=== PATIENT | female | born 1935 | race Caucasian/White ===

== ENCOUNTER 2017-08-16 11:44 | Day surgery (SDC) | payer MEDICARE, BC ==
[~2017-08-16] VITALS: Ht 160 cm; Wt 61.7 kg
[~2017-08-16 11:44] MED LIST: ASCO250CH; ASCO500; ASPI81CH; FAMO20; Hair, Skin & N1 EACH; METF500; PRAV20; Toprol Xl50 MG; [UNRECOGNIZED DRUG - REMARK]
== END 2017-08-16 14:12 | disposition home or self-care (01) ==
LOC: ORSCSDS 11:44
PROVIDERS: Internal Medicine Gastroenterology
PROC: 0DBM8ZX Excision of Descending Colon, Via Natural or Artificial Opening Endoscopic, Diagnostic (ICD-10-PCS; principal; 2017-08-16 13:00)
PROC: 3E0H8GC Introduction of Other Therapeutic Substance into Lower GI, Via Natural or Artificial Opening Endoscopic (ICD-10-PCS; principal; 2017-08-16 13:00)
PROC: 0DBK8ZX Excision of Ascending Colon, Via Natural or Artificial Opening Endoscopic, Diagnostic (ICD-10-PCS; principal; 2017-08-16 13:00)
PROC: 0DBL8ZX Excision of Transverse Colon, Via Natural or Artificial Opening Endoscopic, Diagnostic (ICD-10-PCS; principal; 2017-08-16 13:00)
DX: Z12.11 Encounter for screening for malignant neoplasm of colon (principal); Z86.010 Personal history of colon polyps; Z80.0 Family history of malignant neoplasm of digestive organs; D12.2 Benign neoplasm of ascending colon; D12.3 Benign neoplasm of transverse colon; D12.4 Benign neoplasm of descending colon; K64.8 Other hemorrhoids; E78.5 Hyperlipidemia, unspecified; I10 Essential (primary) hypertension; Z87.891 Personal history of nicotine dependence; Z79.899 Other long term (current) drug therapy; Z79.82 Long term (current) use of aspirin
CPT/HCPCS: 88305; J1980; J2405; J7120

== ENCOUNTER 2017-10-25 11:49 | Day surgery (SDC) | payer MEDICARE, BC ==
[~2017-10-25] VITALS: Ht 160 cm; Wt 60.7 kg
== END 2017-10-25 14:10 | disposition home or self-care (01) ==
LOC: ORSCSDS 11:49
PROVIDERS: Internal Medicine Gastroenterology
PROC: 0DBK8ZX Excision of Ascending Colon, Via Natural or Artificial Opening Endoscopic, Diagnostic (ICD-10-PCS; principal; 2017-10-25 13:00)
PROC: 0DBM8ZX Excision of Descending Colon, Via Natural or Artificial Opening Endoscopic, Diagnostic (ICD-10-PCS; principal; 2017-10-25 13:00)
PROC: 0DBH8ZX Excision of Cecum, Via Natural or Artificial Opening Endoscopic, Diagnostic (ICD-10-PCS; principal; 2017-10-25 13:00)
DX: Z86.010 Personal history of colon polyps (principal); D12.0 Benign neoplasm of cecum; D12.2 Benign neoplasm of ascending colon; D12.4 Benign neoplasm of descending colon; K64.8 Other hemorrhoids; Z80.0 Family history of malignant neoplasm of digestive organs; Z87.891 Personal history of nicotine dependence; K21.9 Gastro-esophageal reflux disease without esophagitis; E78.5 Hyperlipidemia, unspecified; I10 Essential (primary) hypertension; Z79.899 Other long term (current) drug therapy; Z79.82 Long term (current) use of aspirin
CPT/HCPCS: 82947; 88305; J1980; J2405; J7120

== ENCOUNTER 2017-11-13 13:42 | Inpatient (IN) | payer MEDICARE, BC ==
[~2017-11-13] VITALS: Ht 160 cm; Wt 61.7 kg
[2017-11-13] MEDS ORDERED: METO50ER PO (14:04)
[2017-11-13] MEDS ORDERED: METF500C PO (14:04)
[2017-11-13] MEDS ORDERED: FAMO20 PO (14:05)
[2017-11-13] MEDS ORDERED: PRAV20 PO (14:06)
[2017-11-13] MEDS ORDERED: Hair, Skin & N1 EACH PO (14:08)
[2017-11-13] MEDS ORDERED: VITAMIN C500 MG PO (14:11)
[2017-11-13] MEDS ORDERED: CHOL10002 PO (14:11)
[2017-11-18 04:10] LABS: BASOPHILS ABSOLUTE AUTO 0.02 K/mm3 (0.00-0.23); BASOPHILS PERCENT AUTO 0 % (0-2); EOSINOPHILS PERCENT AUTO 0 % (0-6); Hematocrit 31.5 % (33.0-51.0); Hemoglobin 10.2 g/dL (11.5-16.0); IMMATURE GRAN ABSOLUTE AUTO 0.03 K/mm3 (0.00-0.10); IMMATURE GRAN PERCENT AUTO 0 % (0-1); LYMPHOCYTES ABSOLUTE AUTO 1.27 K/mm3 (0.84-5.20); LYMPHOCYTES PERCENT AUTO 12 % (21-46); MONOCYTES ABSOLUTE AUTO 0.91 K/mm3 (0.16-1.47); MONOCYTES PERCENT AUTO 8 % (4-13); Mean Corpuscular HGB 28.1 pg (26.0-34.0); Mean Corpuscular HGB Conc 32.4 g/dL (31.5-36.5); Mean Corpuscular Volume 87 fL (80-100); Mean Platelet Volume 9.4 fL (9.1-12.4); NEUTROPHILS ABSOLUTE AUTO 8.58 K/mm3 (1.96-9.15); NEUTROPHILS PERCENT AUTO 79 % (41-73); Platelet Count 219 K/mm3 (150-400); RDW Coefficient Variation 13.8 % (11.7-14.2); RDW Standard Deviation 44.3 fL (35.1-46.3); Red Blood Cell Count 3.63 M/mm3 (3.80-5.20); White Blood Cell Count 10.81 K/mm3 (4.00-11.30)
[2017-11-18 04:28] LABS: Anion Gap 7 mmol/L (6-16); Blood Urea Nitrogen 11 mg/dL (8-24); CO2, Blood 25 mmol/L (21-32); Calcium, Blood 7.5 mg/dL (8.5-10.1); Chloride, Blood 107 mmol/L (98-108); Creatinine, Blood 0.58 mg/dL (0.40-1.00); Glomerular Filtration Rate >60 (60-); Glucose, Blood 100 mg/dL (70-99); Potassium, Blood 3.8 mmol/L (3.5-5.5); Sodium, Blood 139 mmol/L (136-145)
[2017-11-19 18:22] LABS: Alanine Aminotransfer (ALT/SGP 35 U/L (12-78); Albumin, Blood 2.9 g/dL (3.4-5.0); Albumin/Globulin Ratio 0.7 (0.8-1.8); Alk Phos 66 U/L (50-136); Anion Gap 9 mmol/L (6-16); Aspartate Aminotrans (AST/SGOT 18 U/L (12-37); Bilirubin, Total 0.4 mg/dL (0.1-1.0); Blood Urea Nitrogen 13 mg/dL (8-24); Bun/Creatinine Ratio 21.3 (12.0-20.0); CO2, Blood 28 mmol/L (21-32); Chloride, Blood 102 mmol/L (98-108); Creatinine, Blood 0.61 mg/dL (0.40-1.00); Globulin, Blood 3.9 g/dL (2.2-4.0); Glomerular Filtration Rate >60 (60-); Glucose, Blood 98 mg/dL (70-99); Potassium, Blood 3.9 mmol/L (3.5-5.5); Sodium, Blood 139 mmol/L (136-145); Total Protein, Blood 6.8 g/dL (6.4-8.2)
[2017-11-20 21:48] LABS: Body Fluid Crystals POS (NEGATIVE)
[2017-11-20 21:51] LABS: BASOPHILS ABSOLUTE AUTO 0.02 K/mm3 (0.00-0.23); BASOPHILS PERCENT AUTO 0 % (0-2); EOSINOPHILS ABSOLUTE AUTO 0.15 K/mm3 (0.00-0.68); EOSINOPHILS PERCENT AUTO 2 % (0-6); Hematocrit 33.3 % (33.0-51.0); Hemoglobin 11.2 g/dL (11.5-16.0); IMMATURE GRAN ABSOLUTE AUTO 0.04 K/mm3 (0.00-0.10); IMMATURE GRAN PERCENT AUTO 0 % (0-1); LYMPHOCYTES ABSOLUTE AUTO 1.46 K/mm3 (0.84-5.20); LYMPHOCYTES PERCENT AUTO 15 % (21-46); MONOCYTES ABSOLUTE AUTO 0.77 K/mm3 (0.16-1.47); MONOCYTES PERCENT AUTO 8 % (4-13); Mean Corpuscular HGB 28.4 pg (26.0-34.0); Mean Corpuscular HGB Conc 33.6 g/dL (31.5-36.5); Mean Corpuscular Volume 85 fL (80-100); Mean Platelet Volume 10.2 fL (9.1-12.4); NEUTROPHILS ABSOLUTE AUTO 7.04 K/mm3 (1.96-9.15); NEUTROPHILS PERCENT AUTO 74 % (41-73); Platelet Count 209 K/mm3 (150-400); RDW Coefficient Variation 13.4 % (11.7-14.2); RDW Standard Deviation 41.9 fL (35.1-46.3); Red Blood Cell Count 3.94 M/mm3 (3.80-5.20); White Blood Cell Count 9.48 K/mm3 (4.00-11.30)
[2017-11-20 22:14] LABS: Appearance, Synovial Fluid Turbid (Clear); Color, Synovial Fluid Yellow (None-P Yel); WBC Count, Synovial Fluid 28977 /mm3 (0-180)
[2017-11-20 22:22] LABS: RBC Count, Synovial Fluid 990 /mm3 (0-0)
[2017-11-20 22:30] LABS: Monocytes/Macrophages, Synovia 7 % (0-65); Neutrophils, Synovial Fluid 93 % (0-24)
[2017-11-22 04:24] LABS: BASOPHILS ABSOLUTE AUTO 0.01 K/mm3 (0.00-0.23); BASOPHILS PERCENT AUTO 0 % (0-2); EOSINOPHILS PERCENT AUTO 0 % (0-6); Hematocrit 31.2 % (33.0-51.0); Hemoglobin 10.2 g/dL (11.5-16.0); IMMATURE GRAN ABSOLUTE AUTO 0.03 K/mm3 (0.00-0.10); IMMATURE GRAN PERCENT AUTO 0 % (0-1); LYMPHOCYTES ABSOLUTE AUTO 0.84 K/mm3 (0.84-5.20); LYMPHOCYTES PERCENT AUTO 10 % (21-46); MONOCYTES ABSOLUTE AUTO 0.85 K/mm3 (0.16-1.47); MONOCYTES PERCENT AUTO 10 % (4-13); Mean Corpuscular HGB 27.7 pg (26.0-34.0); Mean Corpuscular HGB Conc 32.7 g/dL (31.5-36.5); Mean Corpuscular Volume 85 fL (80-100); Mean Platelet Volume 9.7 fL (9.1-12.4); NEUTROPHILS ABSOLUTE AUTO 7.07 K/mm3 (1.96-9.15); NEUTROPHILS PERCENT AUTO 80 % (41-73); Platelet Count 275 K/mm3 (150-400); RDW Coefficient Variation 13.4 % (11.7-14.2); RDW Standard Deviation 42.1 fL (35.1-46.3); Red Blood Cell Count 3.68 M/mm3 (3.80-5.20)
[2017-11-22 04:56] LABS: Anion Gap 11 mmol/L (6-16); Blood Urea Nitrogen 8 mg/dL (8-24); Bun/Creatinine Ratio 16.3 (12.0-20.0); CO2, Blood 25 mmol/L (21-32); Calcium, Blood 8.3 mg/dL (8.5-10.1); Chloride, Blood 103 mmol/L (98-108); Creatinine, Blood 0.49 mg/dL (0.40-1.00); Glomerular Filtration Rate >60 (60-); Glucose, Blood 120 mg/dL (70-99); Magnesium, Blood 1.6 mg/dL (1.6-2.4); Potassium, Blood 3.4 mmol/L (3.5-5.5); Sodium, Blood 139 mmol/L (136-145)
[2017-11-23] MEDS ORDERED: Bactrim Ds Tab1 EACH PO ×2 (08:13→12:23)
[2017-11-23] MEDS ORDERED: HYDR1TAB94 PO ×2 (08:14→12:22)
[2017-11-23] MEDS ORDERED: ASPI325EC PO (08:15)
[2017-11-23 09:51] LABS: Vancomycin, Trough 3.9 ug/mL (5.0-10.0)
[2017-11-23] MEDS ORDERED: COLCHICINE0.6 MG PO ×2 (11:24→12:22)
[2017-11-23] MEDS ORDERED: ACET325 PO (12:21)
== END 2017-11-23 14:45 | disposition home or self-care (01) | DRG 330 ==
LOC: SURS 11-17 07:11 → PRE IP 11-17 09:00 → SURS 11-17 13:05
PROVIDERS: Hospitalist; Orthopaedic Surgery; Pharmacist; Surgery
PROC: 0DTF4ZZ Resection of Right Large Intestine, Percutaneous Endoscopic Approach (ICD-10-PCS; 2017-11-17)
PROC: 0S9D3ZX Drainage of Left Knee Joint, Percutaneous Approach, Diagnostic (ICD-10-PCS; 2017-11-20)
PROC: 0SBD4ZZ Excision of Left Knee Joint, Percutaneous Endoscopic Approach (ICD-10-PCS; principal; 2017-11-21 20:00)
PROC: 06HY33Z Insertion of Infusion Device into Lower Vein, Percutaneous Approach (ICD-10-PCS; 2017-11-22)
DX: D12.0 Benign neoplasm of cecum (principal); M00.862 Arthritis due to other bacteria, left knee; M10.9 Gout, unspecified; B96.89 Other specified bacterial agents as the cause of diseases classified elsewhere; I10 Essential (primary) hypertension; K21.9 Gastro-esophageal reflux disease without esophagitis; G89.18 Other acute postprocedural pain; E87.6 Hypokalemia; E78.5 Hyperlipidemia, unspecified; R00.2 Palpitations; M11.262 Other chondrocalcinosis, left knee; S83.242A Other tear of medial meniscus, current injury, left knee, initial encounter; R73.03 Prediabetes; Z79.899 Other long term (current) drug therapy; Z79.84 Long term (current) use of oral hypoglycemic drugs; Z80.0 Family history of malignant neoplasm of digestive organs; Z87.891 Personal history of nicotine dependence; Z86.010 Personal history of colon polyps
CPT/HCPCS: 36415; 36569; 73502; 73562-LT; 80048; 80053; 80202; 83735; 84145; 84550; 85025; 85651; 86140; 87040; 87070; 87205; 88307; 89051; 89060; 94762; 97116; 97161; 97530; C1751; G8978; G8979; G8980; J0295; J0690; J1100; J1650; J1885; J2370; J2405; J2710; J2765; J3010; J3301; J3370; J7030; J7050; J7120

== ENCOUNTER 2017-11-24 00:30 | Day surgery (SDC) | payer MEDICARE, BC ==
[~2017-11-24 00:30] MED LIST changes: +ACET325 PO; +ASPI325EC PO; +Bactrim Ds Tab1 EACH PO; +CHOL10002 PO; +COLCHICINE0.6 MG PO; +FAMO20 PO; +HYDR1TAB94 PO; +Hair, Skin & N1 EACH PO; +METF500C PO; +METO50ER PO; +PRAV20 PO; +VITAMIN C500 MG PO
[2017-11-24 08:51] LABS: Creatinine, Blood 0.58 mg/dL (0.40-1.00); Vancomycin, Trough 5.5 ug/mL (5.0-10.0)
== END 2017-11-24 17:50 | disposition home or self-care (01) ==
LOC: ATC 00:30
PROVIDERS: Orthopaedic Surgery
DX: M00.9 Pyogenic arthritis, unspecified (principal); M10.9 Gout, unspecified; Z98.890 Other specified postprocedural states; Z90.49 Acquired absence of other specified parts of digestive tract
CPT/HCPCS: 80202; 82565; 96365; J3370

== ENCOUNTER 2017-11-25 07:46 | Day surgery (SDC) | payer MEDICARE, BC | END 2017-11-25 17:33 | disposition home or self-care (01) | LOC: ATC 07:46 | DX: M00.9 Pyogenic arthritis, unspecified (principal); M10.9 Gout, unspecified; Z98.890 Other specified postprocedural states; Z90.49 Acquired absence of other specified parts of digestive tract | CPT/HCPCS: 96365; J3370 ==

== ENCOUNTER 2017-11-26 08:20 | Day surgery (SDC) | payer MEDICARE, BC ==
[2017-11-26 09:01] LABS: Creatinine, Blood 0.64 mg/dL (0.40-1.00); Vancomycin, Trough 12.7 ug/mL (5.0-10.0)
== END 2017-11-26 17:58 | disposition home or self-care (01) ==
LOC: ATC 08:20
PROVIDERS: Orthopaedic Surgery
DX: M00.9 Pyogenic arthritis, unspecified (principal); M10.9 Gout, unspecified; Z98.890 Other specified postprocedural states; Z90.49 Acquired absence of other specified parts of digestive tract
CPT/HCPCS: 80202; 82565; 96365; J3370

== ENCOUNTER 2017-11-27 00:28 | Day surgery (SDC) | payer MEDICARE, BC | END 2017-11-27 17:33 | disposition home or self-care (01) | LOC: ATC 00:28 | DX: M00.9 Pyogenic arthritis, unspecified (principal); M10.9 Gout, unspecified; Z98.890 Other specified postprocedural states; Z90.49 Acquired absence of other specified parts of digestive tract | CPT/HCPCS: 96365; J3370 ==

== ENCOUNTER 2017-11-28 00:28 | Day surgery (SDC) | payer MEDICARE, BC ==
[2017-11-28 09:03] LABS: Creatinine, Blood 0.65 mg/dL (0.40-1.00); Vancomycin, Trough 14.8 ug/mL (5.0-10.0)
== END 2017-11-28 17:41 | disposition home or self-care (01) ==
LOC: ATC 00:28
PROVIDERS: Orthopaedic Surgery
DX: M00.9 Pyogenic arthritis, unspecified (principal); M10.9 Gout, unspecified; Z98.890 Other specified postprocedural states; Z90.49 Acquired absence of other specified parts of digestive tract
CPT/HCPCS: 80202; 82565; 96365; J3370

== ENCOUNTER 2017-11-29 07:47 | Day surgery (SDC) | payer MEDICARE, BC | END 2017-11-29 16:45 | disposition home or self-care (01) | LOC: ATC 07:47 | DX: M00.9 Pyogenic arthritis, unspecified (principal); M10.9 Gout, unspecified; Z98.890 Other specified postprocedural states; Z90.49 Acquired absence of other specified parts of digestive tract | CPT/HCPCS: 96365; J3370 ==

== ENCOUNTER 2017-11-30 00:34 | Day surgery (SDC) | payer MEDICARE, BC | END 2017-11-30 17:30 | disposition home or self-care (01) | LOC: ATC 00:34 | DX: M00.9 Pyogenic arthritis, unspecified (principal); M10.9 Gout, unspecified; Z98.890 Other specified postprocedural states; Z90.49 Acquired absence of other specified parts of digestive tract | CPT/HCPCS: 96365; J3370 ==

== ENCOUNTER 2017-12-01 00:25 | Day surgery (SDC) | payer MEDICARE, BC ==
[2017-12-01 08:43] LABS: Creatinine, Blood 0.78 mg/dL (0.40-1.00); Vancomycin, Trough 17.5 ug/mL (5.0-10.0)
== END 2017-12-01 17:53 | disposition home or self-care (01) ==
LOC: ATC 00:25
PROVIDERS: Orthopaedic Surgery
DX: M00.9 Pyogenic arthritis, unspecified (principal); M10.9 Gout, unspecified; Z98.890 Other specified postprocedural states; Z90.49 Acquired absence of other specified parts of digestive tract
CPT/HCPCS: 80202; 82565; 96365; J3370

== ENCOUNTER 2017-12-04 00:44 | Day surgery (SDC) | payer MEDICARE, BC ==
[2017-12-04 08:20] LABS: BASOPHILS ABSOLUTE AUTO 0.02 K/mm3 (0.00-0.23); BASOPHILS PERCENT AUTO 0 % (0-2); EOSINOPHILS ABSOLUTE AUTO 0.32 K/mm3 (0.00-0.68); EOSINOPHILS PERCENT AUTO 4 % (0-6); Hematocrit 31.8 % (33.0-51.0); Hemoglobin 10.4 g/dL (11.5-16.0); IMMATURE GRAN ABSOLUTE AUTO 0.04 K/mm3 (0.00-0.10); IMMATURE GRAN PERCENT AUTO 1 % (0-1); LYMPHOCYTES ABSOLUTE AUTO 0.91 K/mm3 (0.84-5.20); LYMPHOCYTES PERCENT AUTO 11 % (21-46); MONOCYTES ABSOLUTE AUTO 0.81 K/mm3 (0.16-1.47); MONOCYTES PERCENT AUTO 10 % (4-13); Mean Corpuscular HGB 27.6 pg (26.0-34.0); Mean Corpuscular HGB Conc 32.7 g/dL (31.5-36.5); Mean Corpuscular Volume 84 fL (80-100); NEUTROPHILS ABSOLUTE AUTO 6.43 K/mm3 (1.96-9.15); NEUTROPHILS PERCENT AUTO 75 % (41-73); RDW Coefficient Variation 13.9 % (11.7-14.2); RDW Standard Deviation 42.8 fL (35.1-46.3); Red Blood Cell Count 3.77 M/mm3 (3.80-5.20); White Blood Cell Count 8.53 K/mm3 (4.00-11.30)
[2017-12-04 08:22] LABS: Mean Platelet Volume 9.4 fL (9.1-12.4); Platelet Count 265 K/mm3 (150-400)
[2017-12-04 08:35] LABS: Creatinine, Blood 0.83 mg/dL (0.40-1.00); Vancomycin, Trough 17.5 ug/mL (5.0-10.0)
== END 2017-12-04 17:30 | disposition home or self-care (01) ==
LOC: ATC 00:44
PROVIDERS: Orthopaedic Surgery; Surgery
DX: M00.862 Arthritis due to other bacteria, left knee (principal); Z98.890 Other specified postprocedural states; Z90.49 Acquired absence of other specified parts of digestive tract; M10.9 Gout, unspecified
CPT/HCPCS: 80202; 82565; 85025; 85651; 86140; J3370